=== PATIENT | female | born 1960 | race Caucasian/White ===

== ENCOUNTER 2017-12-13 09:24 | Emergency (ER) | payer OTHER | END 2017-12-13 13:02 | disposition home or self-care (01) | LOC: D.ER 09:24 | DX: S83.92XA Sprain of unspecified site of left knee, initial encounter (principal); W54.1XXA Struck by dog, initial encounter; Y93.89 Activity, other specified; Y92.019 Unspecified place in single-family (private) house as the place of occurrence of the external cause ==